=== PATIENT | female | born 1970 | race Caucasian/White ===

== ENCOUNTER 2017-09-25 09:51 | Outpatient (CLI) | payer OTHER ==
--- NOTE | 2017-09-25 14:33 | MRI Report ---
Procedure Date: 09/25/2017 Accession Number: [id number] / [id number] Procedure: MRI - Cervical Spine W/O CPT Code: FULL RESULT: EXAM: MRI CERVICAL SPINE WITHOUT CONTRAST EXAM DATE: 09/25/2017 10:32 AM. CLINICAL HISTORY: Neck pain. Cervical radiculopathy. Left arm paresthesias radiating to the fingers. COMPARISONS: None. TECHNIQUE: Multiplanar, multisequence T1-weighted and fluid-sensitive sequences of the cervical spine without contrast. Other: None. FINDINGS: Alignment: No scoliosis or spondylolisthesis. Neurologic Structures: The visualized posterior fossa structures are unremarkable. No signal abnormality in the visualized spinal cord. Bone Marrow: No gross fractures or bone lesions. No marrow edema. Interspace Levels/Facets: C1-C2: Unremarkable. C2-C3: Unremarkable. C3-C4: Shallow posterior disk bulge with minimal ventral thecal sac indentation, but no cord impingement or significant canal stenosis. Patent right foramen. Mild to moderate foraminal stenosis on the left from intraforaminal disk protrusion with uncinate process spurring. C4-C5: Mild central canal stenosis from a shallow broad-based posterior disk protrusion. Ventral thecal sac partial effacement. No cord compression. Patient right foramen. Moderate left foraminal stenosis from uncinate process hypertrophy and spurring. C5-C6: Mild central stenosis without cord compression from a broad-based posterior disk protrusion. This appears asymmetric, more prominent left of midline. Patent right foramen. Moderate to marked foraminal stenosis on the left from asymmetric left intraforaminal disk protrusion with uncinate process spurring and hypertrophy. C6-C7: Minimal central stenosis without cord impingement from posterior disk protrusion, slightly more prominent left of midline. Patent foramina. C7-T1: Unremarkable. Musculature: Normal. No edema or fatty atrophy. Other: The paravertebral and prevertebral soft tissues are normal. IMPRESSION: Multilevel degenerative changes in the cervical spine, the most significant findings are associated with degenerative foraminal stenosis on the left that is most severe-appearing at C5-C6, but also notable on the left at C6-C7, C4-C5, and to a lesser degree on the left at C3-C4. No significant central canal stenosis, cord compression or focal cord signal abnormality. RADIA
== END 2017-09-25 09:52 | disposition home or self-care (01) ==
LOC: DI 09:51
PROVIDERS: ATTEND Family Medicine
DX: M50.21 Other cervical disc displacement, high cervical region (principal); M47.892 Other spondylosis, cervical region; M50.31 Other cervical disc degeneration, high cervical region
CPT/HCPCS: 72141

== ENCOUNTER 2022-02-13 07:35 | Outpatient (CLI) | payer OTHER ==
--- NOTE | 2022-02-13 11:09 | MRI Report ---
PROCEDURE: CERVICAL SPINE WO INDICATIONS: CERVICAL RADICULOPATHY TECHNIQUE: Noncontrast sagittal T1 spin echo and T2 fast spin echo, sagittal STIR, foraminal oblique sagittal T2 fast spin echo, and axial gradient echo or T2 fast spin echo through the cervical spine. COMPARISON: 09/25/2017. FINDINGS: Image quality: Excellent. Alignment and Curvature: There is normal bony alignment. Bone Marrow: Marrow demonstrates normal overall signal. Spinal Cord: Visualized spinal cord has normal size and signal. No cerebellar tonsillar herniation. Paraspinous Soft Tissues: No paravertebral masses. Prevertebral soft tissues are normal in thicknes s. C2-C3: No canal stenosis or foraminal stenosis. C3-C4: Mild disc bulge. Left uncovertebral joint hypertrophy. AP diameter of the canal is 10 mm. No right foraminal stenosis. Mild left foraminal stenosis. C4-C5: Posterior disc bulge, eccentric to the right. AP diameter of the canal is 7.6 mm. The left si de of the canal is narrowed to a greater extent. There is prominent bilateral uncovertebral joint hyp ertrophy. There is moderate to severe right foraminal narrowing and severe left foraminal narrowing w ith bilateral foraminal C5 nerve root impingement. Disc bulge and canal stenosis is progressive. C5-C6: Disc bulge. AP diameter of the canal is 9.1 mm. Bilateral uncovertebral joint hypertrophy, pr ominent on the left. Mild to moderate right foraminal narrowing. Severe left foraminal narrowing with left foraminal C6 nerve root impingement. C6-C7: Again noted is broad-based posterior disc protrusion. AP diameter of the canal is 8.6 mm. Xavi ateral uncovertebral joint hypertrophy. Mild to moderate right foraminal narrowing. Left foraminal di sc protrusion contributes to moderate to severe foraminal narrowing and left foraminal C7 nerve root impingement. C7-T1: Normal in appearance. IMPRESSION: 1. Diffuse cervical spondylitic change with multilevel disc bulges, multilevel uncovertebral joint hy pertrophy, and multilevel canal stenosis. 2. Canal stenosis is moderate to severe at C4-C5, mild at C5-C6, and mild to moderate at C6-C7. 3. Multilevel foraminal narrowing as described above. This includes moderate to severe right foramina l narrowing and severe left foraminal narrowing at C4-C5, severe left foraminal narrowing at C5-C6, a nd moderate to severe left foraminal narrowing at C6-C7. There is a left foraminal disc protrusion at C6-C7. Reviewed by: Max Bradshaw MD on 02/13/2022 11:07 AM PST Approved by: Max Bradshaw MD on 02/13/2022 11:07 AM PST Station ID: [id number]
== END 2022-02-13 07:36 | disposition home or self-care (01) ==
LOC: DI 07:35
PROVIDERS: ATTEND Family Medicine
DX: M47.22 Other spondylosis with radiculopathy, cervical region (principal); M48.02 Spinal stenosis, cervical region; M50.123 Cervical disc disorder at C6-C7 level with radiculopathy